=== PATIENT | female | born 1975 | race Caucasian/White ===

== ENCOUNTER 2018-04-12 05:40 | Inpatient (IN) | payer OTHER ==
[2018-04-12] MEDS ORDERED: CEFAZOLIN 2 GM/50 ML (PMX) 50 ML IVPB (07:00)
[2018-04-12] MEDS: CEFAZOLIN 1 GM/50 ML (PMX) 50 ML IVPB ×2 (07:40→16:17)
[2018-04-12] MEDS ORDERED: MIDAZOLAM 1 MG/ML 2 ML INJ (07:52)
[2018-04-12] MEDS ORDERED: morphine SULFATE/PF (10 MG/10 ML) INJ (07:53)
[2018-04-12] MEDS ORDERED: BUPIVACAINE 0.75%/DEXT (SPINAL) 2 ML INJ (08:00)
[2018-04-12] MEDS ORDERED: HYDROmorphONE 0.2 MG/ML PCA IV (08:30)
[2018-04-12] MEDS ORDERED: NALOXONE (0.4 MG/ML) INJ IV ×2 (08:30→10:00)
[2018-04-12] MEDS ORDERED: METOCLOPRAMIDE 10 MG INJ IV ×2 (08:30→10:00)
[2018-04-12] MEDS ORDERED: METOCLOPRAMIDE 10 MG INJ (09:32)
[2018-04-12] MEDS ORDERED: ONDANSETRON 4 MG INJ (09:32)
[2018-04-12] MEDS ORDERED: PROPOFOL 20 ML (09:34)
[2018-04-12] MEDS ORDERED: ROCURONIUM 50 MG INJ (09:34)
[2018-04-12] MEDS ORDERED: LIDOCAINE 2% (SDV) 5 ML INJ (09:34)
[2018-04-12] MEDS ORDERED: CEFAZOLIN 1 GM INJ (09:36)
[2018-04-12] MEDS ORDERED: DEXAMETHASONE 4 MG/ML 1 ML INJ (09:37)
[2018-04-12] MEDS ORDERED: HYDROmorphONE 1 MG/5 ML IV SYRINGE IV ×2 (10:00)
[2018-04-12] MEDS ORDERED: MEPERIDINE 25 MG INJ IV (10:00)
[2018-04-12] MEDS ORDERED: DIPHENHYDRAMINE 50 MG INJ IV (10:00)
[2018-04-12] MEDS ORDERED: ONDANSETRON 4 MG INJ IV (10:00)
[2018-04-12] MEDS ORDERED: KETOROLAC 30 MG INJ IV (10:30)
[2018-04-12] MEDS ORDERED: MEPERIDINE 25 MG INJ (10:31)
[2018-04-12] MEDS ORDERED: FENTAnyl 50 MCG/ML VIAL (10:31)
[2018-04-12] MEDS: LACTATED RINGER'S 1,000 ML IV* (10:32)
[2018-04-12] MEDS: FENTAnyl 50 MCG/ML VIAL IV (10:42)
[2018-04-12] MEDS: KETOROLAC 30 MG INJ IV ×3 (11:13→22:57)
[2018-04-12] MEDS: ONDANSETRON 4 MG INJ IV (18:45)
[2018-04-13] MEDS: CEFAZOLIN 1 GM/50 ML (PMX) 50 ML IVPB (00:53)
[2018-04-13 05:06] LABS: ADD MAN DIFF? NO; BASOPHILS % 0.1 % (0.0-2.0); EOSINOPHILS % 0.4 % (0.0-7.0); HEMATOCRIT 34.8 % (37.0-47.0); HEMOGLOBIN 11.5 g/dl (12.0-16.0); LYMPHOCYTES # 1.5 10^3/ul (0.8-2.9); MEAN CORPUSCULAR HEMOGLOBIN 27.1 pg (29.0-33.0); MEAN CORPUSCULAR VOLUME 82.1 fl (82.0-101.0); MEAN PLATELET VOLUME 10.9 fl (7.4-10.4); MONOCYTE # 0.7 10^3/ul (0.3-0.9); MONOCYTES % 9.4 % (0.0-11.0); NEUTROPHIL # 4.7 10^3/ul (1.6-7.5); NEUTROPHILS % 67.5 % (39.0-77.0); PLATELET COUNT 171 10^3/UL (140-415); RED BLOOD COUNT 4.24 10^6/ul (4.20-5.40); RED CELL DISTRIBUTION WIDTH 12.7 % (11.5-14.5)
[2018-04-13 05:06] LABS: WHITE BLOOD COUNT 6.9 10^3/ul (4.8-10.8)
[2018-04-13] MEDS: KETOROLAC 30 MG INJ IV ×4 (05:17→22:32)
[2018-04-13 05:38] LABS: ANION GAP 7 (8-16); BLOOD UREA NITROGEN 6 mg/dl (7-20); CALCIUM 8.3 mg/dl (8.4-10.2); CARBON DIOXIDE 27 mmol/L (21-31); CHLORIDE 105 mmol/L (97-110); CREATININE 0.76 mg/dl (0.44-1.00); GLUCOSE 116 mg/dl (70-220); POTASSIUM 4.3 mmol/L (3.5-5.1); SODIUM 135 mmol/L (135-144)
[2018-04-13] MEDS: ENOXAPARIN 40 MG/0.4 ML SYG SC (12:33)
[2018-04-14] MEDS: KETOROLAC 30 MG INJ IV (05:26)
[2018-04-14] MEDS: ENOXAPARIN 40 MG/0.4 ML SYG SC (09:06)
[2018-04-14] MEDS: HYDROCODONE/APAP (10/325) TAB PO ×3 (12:52→19:30)
[2018-04-14] MEDS: IOHEXOL 300MG/ML 30 ML BTL ×2 (21:23→21:24)
[2018-04-14] MEDS: SOD CHLORIDE 0.9% 500 ML (21:23)
[2018-04-15] MEDS: HYDROCODONE/APAP (10/325) TAB PO ×2 (01:34→09:02)
[2018-04-15] MEDS: ENOXAPARIN 40 MG/0.4 ML SYG SC (09:26)
== END 2018-04-15 12:30 | disposition home or self-care (01) | DRG 743 ==
LOC: REC 05:40 → MS1 11:38
PROC: 0UT90ZZ Resection of Uterus, Open Approach (ICD-10-PCS; principal; 2018-04-12 07:30)
PROC: 0UT70ZZ Resection of Bilateral Fallopian Tubes, Open Approach (ICD-10-PCS; 2018-04-12 07:30)
DX: D25.1 Intramural leiomyoma of uterus (principal); N92.1 Excessive and frequent menstruation with irregular cycle; D64.9 Anemia, unspecified; F17.200 Nicotine dependence, unspecified, uncomplicated
CPT/HCPCS: 72192; 80048; 84703; 85025; 87086; 88305

== ENCOUNTER 2018-04-20 15:35 | Outpatient (CLI) | payer OTHER | END 2018-04-20 16:16 | disposition home or self-care (01) | LOC: DCC 15:35 | DX: N92.0 Excessive and frequent menstruation with regular cycle (principal); Z90.710 Acquired absence of both cervix and uterus | CPT/HCPCS: G0463 ==